=== PATIENT | female | born 1990 | race Two or more races ===

== ENCOUNTER 2022-09-21 22:34 | Emergency (ER) | payer MEDICAID ==
[~2022-09-21] VITALS: Ht 165.1 cm; Wt 113.4 kg
[2022-09-21] MEDS ORDERED: ALBU8.5H8 IH (22:49)
--- NOTE | 2022-09-21 22:52 | NUR ---
seen and examined by
[2022-09-21] MEDS ORDERED: MAGNESIUM SULFATE 2 GM in IV DEXTROSE 5% 100 ML IV ONE (23:00)
[2022-09-21] MEDS ORDERED: methylPREDNISolone SOD SUCC 125 MG/2 ML VIAL IV ONE (23:00)
[2022-09-21] MEDS ORDERED: ALBUTEROL SULFATE 2.5 MG/3 ML NEBU NEB ONE (23:00)
[2022-09-21] MEDS ORDERED: IPRATROPIUM BROMIDE 0.5 MG/2.5 ML NEBU ONE (23:00)
[2022-09-21] MEDS ORDERED: IV NORMAL SALINE 1000 ML BAG IV ONE (23:00)
[2022-09-21] MEDS ORDERED: IPRATROPIUM BROMIDE 0.5 MG/2.5 ML NEBU NEB ONE (23:00)
[2022-09-21] MEDS ORDERED: ALBUTEROL SULFATE 2.5 MG/3 ML NEBU ONE (23:00)
[2022-09-21 23:08] LABS: HEMATOCRIT 33.6 % (31.2-41.9); MEAN CORPUSCULAR HEMOGLOBIN 25.3 uug (24.7-32.8); MEAN CORPUSCULAR VOLUME 77.3 fL (75.5-95.3); PLATELET COUNT (AUTO) 336 K/uL (179-408)
[2022-09-21] MEDS ORDERED: MAGNESIUM SULFATE/D5W 200 ML ONE (23:17)
[2022-09-21] MEDS ORDERED: methylPREDNISolone SOD SUCC 125 MG/2 ML VIAL ONE (23:17)
[2022-09-21 23:27] LABS: BILIRUBIN,TOTAL 0.2 mg/dL (0.2-1.0); CREATININE 0.8 mg/dL (0.6-1.3); POTASSIUM 3.6 mmol/L (3.5-5.1); TOTAL PROTEIN, SERUM 7.4 g/dL (6.4-8.2)
--- NOTE | 2022-09-22 00:04 | NUR ---
covid and flu test sent to lab
[2022-09-22] MEDS ORDERED: PRED20TA PO (01:16)
[2022-09-22] MEDS ORDERED: ALBU2.5V38 NEB (01:17)
[2022-09-22] MEDS ORDERED: ALBU8.5H8 INH (01:19)
[2022-09-22 01:21] VITALS: BP 128/80
--- NOTE | 2022-09-22 01:21 | NUR ---
Patient discharged to home in stable condition. Written and verbal after care instructions given. Patient verbalizes understanding of instructions. Stressed follow up or return to ER for worsening s/s.
== END 2022-09-22 01:23 | disposition home or self-care (01) ==
LOC: ER 22:34
DX: J45.909 Unspecified asthma, uncomplicated (principal); Z88.0 Allergy status to penicillin
CPT/HCPCS: 99285; 96365; 71045; 96375; 87426; 87804 ×2; 80053; 85025; 94640; 84702; 36415; J3475 ×2; J2930; J7040 ×2; A4663; J3590

== ENCOUNTER 2022-10-04 09:50 | Emergency (ER) | payer MEDICAID ==
[~2022-10-04] VITALS: Ht 160 cm; Wt 97.5 kg
[~2022-10-04 09:50] MED LIST: ALBU2.5V38 NEB; ALBU8.5H8 IH; ALBU8.5H8 INH; PRED20TA PO
[2022-10-04] MEDS ORDERED: IPRATROPIUM BROMIDE 0.5 MG/2.5 ML NEBU ONE ×2 (10:12→11:45)
[2022-10-04] MEDS ORDERED: ALBUTEROL SULFATE 2.5 MG/3 ML NEBU ONE ×2 (10:12→11:45)
[2022-10-04] MEDS ORDERED: IPRATROPIUM BROMIDE 0.5 MG/2.5 ML NEBU NEB ONE ×2 (10:15→11:30)
[2022-10-04] MEDS ORDERED: ALBUTEROL SULFATE 2.5 MG/3 ML NEBU NEB ONE ×2 (10:15→11:30)
[2022-10-04] MEDS ORDERED: FAMOTIDINE 20 MG TABLET PO ONE (11:30)
[2022-10-04] MEDS ORDERED: DEXAMETHASONE SOD PHOSPHATE 4 MG INJ IM ONE (11:30)
[2022-10-04] MEDS ORDERED: ACETAMINOPHEN 325 MG TABLET ONE (11:35)
[2022-10-04] MEDS ORDERED: FAMOTIDINE 20 MG TABLET ONE (11:35)
[2022-10-04] MEDS ORDERED: DEXAMETHASONE SOD PHOSPHATE 10 MG INJ ONE (11:35)
[2022-10-04] MEDS ORDERED: ACETAMINOPHEN 325 MG TABLET PO ONE (11:45)
[2022-10-04 12:18] VITALS: BP 122/80
[2022-10-04] MEDS ORDERED: PRED20TA PO (12:19)
== END 2022-10-04 12:25 | disposition home or self-care (01) ==
LOC: ER 09:50
DX: J45.909 Unspecified asthma, uncomplicated (principal); J02.9 Acute pharyngitis, unspecified; Z88.0 Allergy status to penicillin
CPT/HCPCS: 99291; 96372; 94640 ×2; J1100; A4663; J3590

== ENCOUNTER 2022-10-22 03:59 | Emergency (ER) | payer MEDICAID ==
[~2022-10-22] VITALS: Ht 160 cm; Wt 113.4 kg
[2022-10-22] MEDS ORDERED: LIDOCAINE VISCUS 2% 15 ML UDC ONE (04:30)
[2022-10-22] MEDS ORDERED: MAG HYDROX/AL HYDROX/SIMETH 30 ML LIQUID UDC PO ONE (04:30)
[2022-10-22] MEDS ORDERED: LIDOCAINE VISCUS 2% 15 ML UDC MM ONE (04:30)
[2022-10-22] MEDS ORDERED: LIDOCAINE 4% TOPICAL 50 ML BOTTLE TP ONE (04:30)
[2022-10-22] MEDS ORDERED: MAG HYDROX/AL HYDROX/SIMETH 30 ML LIQUID UDC ONE (04:31)
[2022-10-22] MEDS ORDERED: OMEP40CA21 PO (04:32)
[2022-10-22] MEDS ORDERED: LIDOCAINE 4% TOPICAL 50 ML BOTTLE ONE (04:38)
[2022-10-22] MEDS ORDERED: PANTOPRAZOLE SODIUM 40 MG TABLET.DR PO ONE ×2 (04:54→05:00)
--- NOTE | 2022-10-22 04:55 | NUR ---
A/O x 4. NAD noted. Ambulatory with a steady gait. Patient discharged to home in stable condition. Ambukatory with a steady gait. All belongings with patient. Written and verbal after care instructions given. Patient verbalizes understanding of instructions. Stressed follow up or return to ER for worsening s/s.
== END 2022-10-22 04:56 | disposition home or self-care (01) ==
LOC: ER 04:01
DX: K21.9 Gastro-esophageal reflux disease without esophagitis (principal); R05.9 Cough, unspecified; J45.909 Unspecified asthma, uncomplicated; Z88.0 Allergy status to penicillin; Z79.899 Other long term (current) drug therapy
CPT/HCPCS: A4663

== ENCOUNTER 2022-10-31 04:47 | Emergency (ER) | payer MEDICAID ==
[~2022-10-31] VITALS: Ht 160 cm; Wt 113.4 kg
[~2022-10-31 04:47] MED LIST changes: +OMEP40CA21 PO
[2022-10-31] MEDS ORDERED: IPRATROPIUM BROMIDE 0.5 MG/2.5 ML NEBU NEB ONE (05:15)
[2022-10-31] MEDS ORDERED: ALBUTEROL SULFATE 2.5 MG/ 0.5 ML NEBU NEB ONE ×2 (05:15)
[2022-10-31] MEDS ORDERED: predniSONE 20 MG TABLET PO ONE (05:15)
[2022-10-31] MEDS ORDERED: IPRATROPIUM BROMIDE 0.5 MG/2.5 ML NEBU ONE (05:18)
[2022-10-31] MEDS ORDERED: ALBUTEROL SULFATE 2.5 MG/3 ML NEBU ONE (05:18)
[2022-10-31] MEDS ORDERED: PRED20TA PO (05:21)
[2022-10-31 05:33] LABS: HEMATOCRIT 34.2 % (31.2-41.9); MEAN CORPUSCULAR VOLUME 77.2 fL (75.5-95.3); PLATELET COUNT (AUTO) 361 K/uL (179-408)
[2022-10-31] MEDS ORDERED: predniSONE 20 MG TABLET ONE (05:36)
[2022-10-31 05:41] LABS: CREATININE 0.8 mg/dL (0.6-1.3); POTASSIUM 3.7 mmol/L (3.5-5.1)
[2022-10-31 05:47] LABS: BILIRUBIN,TOTAL 0.2 mg/dL (0.2-1.0); TOTAL PROTEIN, SERUM 7.4 g/dL (6.4-8.2)
[2022-10-31 06:54] VITALS: BP 120/78
== END 2022-10-31 06:55 | disposition home or self-care (01) ==
LOC: ER 04:47
DX: J45.909 Unspecified asthma, uncomplicated (principal); R07.89 Other chest pain; Z88.0 Allergy status to penicillin; Z79.899 Other long term (current) drug therapy
CPT/HCPCS: 99291; 80053; 85025; 36415; 71045; 94644; J7512; A4663; J3590

== ENCOUNTER 2022-11-19 15:18 | Emergency (ER) | payer MEDICAID ==
[~2022-11-19] VITALS: Ht 160 cm; Wt 113.4 kg
[2022-11-19] MEDS ORDERED: IPRATROPIUM BROMIDE 0.5 MG/2.5 ML NEBU NEB ONE (16:00)
[2022-11-19] MEDS ORDERED: methylPREDNISolone SOD SUCC 125 MG/2 ML VIAL IV ONE (16:00)
[2022-11-19] MEDS ORDERED: ALBUTEROL SULFATE 2.5 MG/3 ML NEBU NEB ONE (16:00)
[2022-11-19] MEDS ORDERED: MAGNESIUM SULFATE 2 GM in IV DEXTROSE 5% 100 ML IV ONE (16:00)
[2022-11-19] MEDS ORDERED: MAGNESIUM SULFATE/D5W 100 ML ONE (16:04)
[2022-11-19] MEDS ORDERED: MAGNESIUM SULFATE 1 GM/2 ML VIAL ONE (16:05)
[2022-11-19] MEDS ORDERED: methylPREDNISolone SOD SUCC 125 MG/2 ML VIAL ONE (16:06)
[2022-11-19] MEDS ORDERED: ALBUTEROL SULFATE 2.5 MG/3 ML NEBU ONE (16:08)
[2022-11-19] MEDS ORDERED: IPRATROPIUM BROMIDE 0.5 MG/2.5 ML NEBU ONE (16:08)
[2022-11-19] MEDS ORDERED: PRED50TA PO (18:18)
[2022-11-19] MEDS ORDERED: ALBU2.5V38 NEB (18:22)
--- NOTE | 2022-11-19 18:38 | NUR ---
PT WAS EVALUATED BY DR SCHULTZ.PT WAS D/C'd TO HOME. D/C INSTRUCTIONS GIVEN TO THE PT.
[2022-11-19 18:39] VITALS: BP 132/76
== END 2022-11-19 18:41 | disposition home or self-care (01) ==
LOC: ER 15:18
DX: J45.901 Unspecified asthma with (acute) exacerbation (principal); R07.89 Other chest pain; Z88.0 Allergy status to penicillin; Z79.899 Other long term (current) drug therapy
CPT/HCPCS: 99284; 96365; 71046; 96366; 96375; 94640; J3475 ×3; J2930; A4663; J3590

== ENCOUNTER 2023-03-30 15:39 | Inpatient (IN) | payer MEDICAID ==
[~2023-03-30] VITALS: Ht 160 cm; Wt 113.4 kg
[2023-03-30] VITALS (8 sets, daily range): O2SAT 90–99
[~2023-03-30 15:39] MED LIST changes: +PRED50TA PO
[2023-03-30] MEDS ORDERED: ALBUTEROL SULFATE 2.5 MG/3 ML NEBU ONE ×3 (16:06→17:16)
[2023-03-30] MEDS ORDERED: IPRATROPIUM BROMIDE 0.5 MG/2.5 ML NEBU ONE ×2 (16:06→16:26)
[2023-03-30] MEDS ORDERED: ALBUTEROL SULFATE 2.5 MG/3 ML NEBU NEB ONE ×3 (16:15→17:15)
[2023-03-30] MEDS ORDERED: IPRATROPIUM BROMIDE 0.5 MG/2.5 ML NEBU NEB ONE ×2 (16:15→16:30)
[2023-03-30 16:26] LABS: BASOPHILS # (AUTO) 0.1 K/UL (0.0-0.2); BASOPHILS % (AUTO) 0.7 % (0.0-2.0); DIFFERENTIAL COMMENT 0; EOSINOPHILS # (AUTO) 0.4 K/uL (0.0-0.7); EOSINOPHILS % (AUTO) 3.8 % (0.0-7.0); HEMATOCRIT 36.2 % (31.2-41.9); HEMOGLOBIN 11.8 g/dL (10.9-14.3); LYMPHOCYTES # (AUTO) 1.8 K/uL (0.8-4.8); LYMPHOCYTES % (AUTO) 17.1 % (20.5-51.5); MEAN CORPUSCULAR HEMOGLOBIN 25.2 uug (24.7-32.8); MEAN CORPUSCULAR HGB CONC 33 g/dL (32.3-35.6); MEAN CORPUSCULAR VOLUME 77.6 fL (75.5-95.3); MONOCYTES # (AUTO) 0.5 K/uL (0.1-1.30); MONOCYTES % (AUTO) 4.9 % (0.0-11.0); NEUTROPHILS # (AUTO) 7.6 K/uL (1.8-8.9); NEUTROPHILS % (AUTO) 73.5 % (38.5-71.5); PLATELET COUNT (AUTO) 388 K/uL (179-408); RED BLOOD CELL COUNT(AUTO) 4.67 MIL/uL (3.63-4.92); RED CELL DISTRIBUTION WIDTH 14.7 % (12.3-17.7); WHITE BLOOD COUNT (AUTO) 10.3 K/uL (3.8-11.8)
[2023-03-30] MEDS ORDERED: predniSONE 10 MG TABLET PO ONE (16:30)
[2023-03-30] MEDS ORDERED: predniSONE 10 MG TABLET ONE (16:33)
[2023-03-30] MEDS ORDERED: predniSONE 50 MG TABLET ONE (16:33)
[2023-03-30 16:35] LABS: CALCIUM 9.9 mg/dL (8.5-10.1); CARBON DIOXIDE 25 mmol/L (21-32); CHLORIDE 104 mmol/L (98-107); GLUCOSE 143 mg/dL (74-106); POTASSIUM 3.7 mmol/L (3.5-5.1); SODIUM SERUM 142 mmol/L (136-145); UREA NITROGEN, BLOOD 7 mg/dL (7-18)
[2023-03-30 16:44] LABS: ALANINE AMINOTRANSFERASE 34 U/L (14-59); ALKALINE PHOSPHATASE < 10 U/L (50-136); ASPARTATE AMINOTRANSFERASE 13 U/L (15-37); BILIRUBIN,DIRECT 0.1 mg/dL (0.0-0.2); BILIRUBIN,TOTAL 0.2 mg/dL (0.2-1.0); TOTAL PROTEIN, SERUM 7.5 g/dL (6.4-8.2)
[2023-03-30] MEDS ORDERED: LORAZEPAM 1 MG TABLET ONE (17:14)
[2023-03-30] MEDS ORDERED: LORAZEPAM 0.5 MG TABLET PO ONE (17:15)
[2023-03-30] MEDS ORDERED: IV NORMAL SALINE 250 ML IV ONE (18:10)
[2023-03-30] MEDS ORDERED: SWABABLE VALVE TRANSFER SET EA MC ONE (18:10)
[2023-03-30] MEDS ORDERED: IOHEXOL 350 100 ML INFUS..BTL ONE (18:10)
[2023-03-30] MEDS ORDERED: REMEDY ESSENTIAL ZINC PASTE 113 GM TP PRN (21:45)
[2023-03-30] MEDS ORDERED: MAGNESIUM HYDROXIDE 30 ML LIQUID UDC PO PRN (21:45)
[2023-03-30] MEDS ORDERED: ACETAMINOPHEN 325 MG TABLET PO PRN (21:45)
[2023-03-30] MEDS ORDERED: ONDANSETRON 4 MG/2 ML VIAL IV PRN (21:45)
[2023-03-30] MEDS: IPRATROPIUM BROMIDE 0.5 MG/2.5 ML NEBU NEB PRN (22:43)
[2023-03-30] MEDS: ALBUTEROL SULFATE 2.5 MG/ 0.5 ML NEBU NEB PRN (22:43)
[2023-03-30] MEDS: LORAZEPAM 0.5 MG TABLET PO PRN (22:58)
[2023-03-30] MEDS: ZOLPIDEM 5 MG TABLET PO PRN (23:43)
[2023-03-31] VITALS (11 sets, daily range): BP systolic 122–136; BP diastolic 64–72; TEMP 98.2–98.6; O2SAT 89–99
[2023-03-31] MEDS ORDERED: MAGNESIUM SULFATE/D5W 100 ML IV ONE (01:00)
[2023-03-31] MEDS: GUAIFENESIN/DEXTROMETHORPHAN 5 ML UDC PO PRN ×2 (01:14→06:29)
[2023-03-31] MEDS: ALBUTEROL SULFATE 2.5 MG/ 0.5 ML NEBU NEB PRN ×3 (02:18→12:20)
[2023-03-31] MEDS: IPRATROPIUM BROMIDE 0.5 MG/2.5 ML NEBU NEB PRN ×3 (02:18→12:20)
[2023-03-31] MEDS: LORAZEPAM 0.5 MG TABLET PO PRN ×3 (06:29→20:53)
[2023-03-31 08:00] LABS: BASOPHILS % (AUTO) 0.1 % (0.0-2.0); HEMATOCRIT 34.6 % (31.2-41.9); HEMOGLOBIN 11.2 g/dL (10.9-14.3); LYMPHOCYTES # (AUTO) 1.4 K/uL (0.8-4.8); LYMPHOCYTES % (AUTO) 10.3 % (20.5-51.5); MEAN CORPUSCULAR HEMOGLOBIN 25.1 uug (24.7-32.8); MEAN CORPUSCULAR HGB CONC 32 g/dL (32.3-35.6); MEAN CORPUSCULAR VOLUME 77.4 fL (75.5-95.3); MONOCYTES # (AUTO) 0.6 K/uL (0.1-1.30); MONOCYTES % (AUTO) 4.8 % (0.0-11.0); NEUTROPHILS # (AUTO) 11.5 K/uL (1.8-8.9); NEUTROPHILS % (AUTO) 84.8 % (38.5-71.5); PLATELET COUNT (AUTO) 391 K/uL (179-408); RED BLOOD CELL COUNT(AUTO) 4.47 MIL/uL (3.63-4.92); RED CELL DISTRIBUTION WIDTH 14.7 % (12.3-17.7); WHITE BLOOD COUNT (AUTO) 13.6 K/uL (3.8-11.8)
[2023-03-31 08:12] LABS: DIFFERENTIAL COMMENT 1
[2023-03-31 08:27] LABS: THYROID STIMULATING HORMONE 0.991 mIU/mL (0.358-3.740)
[2023-03-31 08:34] LABS: CALCIUM 8.9 mg/dL (8.5-10.1); CREATININE 0.9 mg/dL (0.6-1.3); MAGNESIUM 2.1 mg/dL (1.8-2.4); PHOSPHOROUS 5.3 mg/dL (2.5-4.9); POTASSIUM 4.2 mmol/L (3.5-5.1)
[2023-03-31] MEDS: PANTOPRAZOLE SODIUM 40 MG VIAL IV SCH (08:56)
[2023-03-31] MEDS ORDERED: methylPREDNISolone SOD SUCC 40 MG/ML VIAL IV SCH (09:00)
[2023-03-31] MEDS: levoFLOXacin 500 MG TABLET PO SCH (13:29)
[2023-03-31] MEDS ORDERED: ALBU18HF2 IH (16:38)
[2023-03-31] MEDS ORDERED: ALBU2.5V38 IH (16:38)
[2023-03-31] MEDS ORDERED: FLUT1BLS13 IH (16:38)
[2023-03-31] MEDS ORDERED: LORA10TA7 PO (16:38)
[2023-03-31] MEDS: IPRATROPIUM BROMIDE 0.5 MG/2.5 ML NEBU NEB SCH (19:23)
[2023-03-31] MEDS: ALBUTEROL SULFATE 2.5 MG/3 ML NEBU NEB SCH (19:24)
[2023-03-31 19:31] LABS: *URINE HCG, QUAL NEGATIVE (NEGATIVE)
[2023-03-31] MEDS: methylPREDNISolone SOD SUCC 40 MG/ML VIAL IV SCH (21:26)
[2023-03-31] MEDS: ZOLPIDEM 5 MG TABLET PO PRN (22:20)
[2023-04-01] VITALS (10 sets, daily range): BP systolic 101–118; BP diastolic 45–79; TEMP 98–98.2; O2SAT 93–99
[2023-04-01] MEDS: IPRATROPIUM BROMIDE 0.5 MG/2.5 ML NEBU NEB PRN (00:48)
[2023-04-01] MEDS: ALBUTEROL SULFATE 2.5 MG/ 0.5 ML NEBU NEB PRN (00:48)
[2023-04-01] MEDS: methylPREDNISolone SOD SUCC 40 MG/ML VIAL IV SCH ×2 (06:13→14:38)
[2023-04-01 07:13] LABS: BASOPHILS % (AUTO) 0.1 % (0.0-2.0); HEMATOCRIT 33.3 % (31.2-41.9); HEMOGLOBIN 11.1 g/dL (10.9-14.3); LYMPHOCYTES # (AUTO) 1.4 K/uL (0.8-4.8); LYMPHOCYTES % (AUTO) 10.8 % (20.5-51.5); MEAN CORPUSCULAR HEMOGLOBIN 25.8 uug (24.7-32.8); MEAN CORPUSCULAR HGB CONC 34 g/dL (32.3-35.6); MONOCYTES # (AUTO) 0.4 K/uL (0.1-1.30); MONOCYTES % (AUTO) 3.1 % (0.0-11.0); NEUTROPHILS # (AUTO) 11.1 K/uL (1.8-8.9); PLATELET COUNT (AUTO) 380 K/uL (179-408); RED BLOOD CELL COUNT(AUTO) 4.32 MIL/uL (3.63-4.92); RED CELL DISTRIBUTION WIDTH 14.9 % (12.3-17.7)
[2023-04-01 07:14] LABS: DIFFERENTIAL COMMENT 1
[2023-04-01 07:21] LABS: CALCIUM 8.8 mg/dL (8.5-10.1); CREATININE 0.8 mg/dL (0.6-1.3); MAGNESIUM 2.1 mg/dL (1.8-2.4); PHOSPHOROUS 5.1 mg/dL (2.5-4.9); POTASSIUM 4.4 mmol/L (3.5-5.1)
[2023-04-01] MEDS: ALBUTEROL SULFATE 2.5 MG/3 ML NEBU NEB SCH ×3 (07:25→15:30)
[2023-04-01] MEDS: IPRATROPIUM BROMIDE 0.5 MG/2.5 ML NEBU NEB SCH ×3 (07:26→15:30)
[2023-04-01 08:30] LABS: ABG BASE EXCESS -1.3 mmol/L; ABG HCO3 22.5 mmol/L; ABG PCO2 34.8 mmHg (35.0-45.0); ABG PH 7.428 (7.350-7.450); ABG PO2 65.2 mmHg (75.0-100.0); ABG SITE LEFT RADIAL; ABG TOTAL HEMOGLOBIN 12.3 G/dL (12.0-16.0); COHb 0.3 % (0.5-1.5); MetHb 0.2 % (0.0-1.5); O2Hb 93.1 % (94.0-97.0); VENT MODE Nasal Cannula
[2023-04-01] MEDS: PANTOPRAZOLE SODIUM 40 MG VIAL IV SCH ×2 (09:28→09:56)
[2023-04-01] MEDS: levoFLOXacin 500 MG TABLET PO SCH (14:38)
[2023-04-01] MEDS ORDERED: LEVO500T90 PO (18:44)
[2023-04-01] MEDS ORDERED: LORA10TA7 PO (18:44)
[2023-04-01] MEDS ORDERED: FLUT1BLS13 IH (18:44)
[2023-04-01] MEDS ORDERED: ALBU2.5V38 NEB (18:44)
[2023-04-01] MEDS ORDERED: ALBU8.5H8 INH (18:44)
[2023-04-01] MEDS ORDERED: PRED20TA PO (18:44)
[2023-04-01] MEDS ORDERED: methylPREDNISolone SOD SUCC 40 MG/ML VIAL IV SCH (21:00)
== END 2023-04-01 16:25 | disposition home or self-care (01) | DRG 141 ==
LOC: ER 15:40 → TELE3 20:23
PROVIDERS: ADMIT Nurse Practitioner Acute Care; ATTEND Nurse Practitioner Acute Care
DX: J45.901 Unspecified asthma with (acute) exacerbation (principal); J96.01 Acute respiratory failure with hypoxia; E44.1 Mild protein-calorie malnutrition; E66.01 Morbid (severe) obesity due to excess calories; G47.30 Sleep apnea, unspecified; J20.9 Acute bronchitis, unspecified; K21.9 Gastro-esophageal reflux disease without esophagitis; D72.829 Elevated white blood cell count, unspecified; Z68.41 Body mass index [BMI] 40.0-44.9, adult; Z88.0 Allergy status to penicillin; Z20.822 Contact with and (suspected) exposure to COVID-19
CPT/HCPCS: 36415; 36600; 71045; 71275; 82803; 83735; 84100; 84443; 84484; 84703; 85025; 93005; 94640; 94760; A4663; C9113; G0378; J2920; J3475; J3590; J7512; Q9967

== ENCOUNTER 2023-12-31 22:33 | Emergency (ER) | payer MEDICAID, OTHER ==
[~2023-12-31] VITALS: Ht 165.1 cm; Wt 96.2 kg
[~2023-12-31 22:33] MED LIST changes: -ALBU8.5H8 IH; +FLUT1BLS13 IH; +LEVO500T90 PO; +LORA10TA7 PO; -OMEP40CA21 PO; -PRED50TA PO
[2023-12-31] MEDS ORDERED: BENZONATATE 100 MG CAPSULE ONE (23:11)
[2023-12-31] MEDS: BENZONATATE 100 MG CAPSULE PO ONE (23:13)
[2023-12-31] MEDS ORDERED: BENZ-13 PO (23:15)
[2023-12-31] MEDS ORDERED: IPRA42SP NS (23:15)
[2023-12-31 23:22] VITALS: BP 132/86; O2SAT 99
== END 2023-12-31 23:19 | disposition home or self-care (01) ==
LOC: ER 22:34
DX: J06.9 Acute upper respiratory infection, unspecified (principal); J45.909 Unspecified asthma, uncomplicated; K21.9 Gastro-esophageal reflux disease without esophagitis; Z79.899 Other long term (current) drug therapy; Z88.0 Allergy status to penicillin
CPT/HCPCS: A4606; A4663